=== PATIENT | female | born 1955 | race Caucasian/White ===

== ENCOUNTER 2020-11-04 08:02 | Outpatient (CLI) | payer MEDICARE, MEDICAID, SELFPAY ==
--- NOTE | ~2020-11-04 | CT_ITS ---
EXAMINATION: CT abdomen w con DATE: 11/04/2020 08:52 INDICATION: Mid and upper abdominal pain. Epigastric abdominal pain. Gastroesophageal reflux. Abdomin al bloating, burping, nausea, diarrhea. History of gastric bypass surgery in 1977. TECHNIQUE: Computed tomography (CT) of the abdomen was performed with 100 cc Omnipaque 350 intravenou s contrast. Automated exposure control and iterative reconstruction technique were employed. Exam dos e: 969.03 mGy-cm total exam DLP. COMPARISON: 12/01/2018 abdominal ultrasound examination FINDINGS: Normal heart size. No pericardial or pleural effusion. The lung bases are clear of infiltra te or consolidation. Small sliding hiatal hernia. Status post gastric bypass surgery. There are small stones at the neck of the gallbladder. No gallbladder wall thickening or pericholecys tic fluid or stranding. No hepatic, splenic, pancreatic, and adrenal or renal space-occupying mass lesion. No urinary tract c alculus or hydroureteronephrosis. Normal caliber of the abdominal aorta. No intraperitoneal or retroperitoneal mass lesion or adenopath y or ascites. Diverticulosis of transverse and descending colon; no CT evidence of diverticulitis of the included c olon. No bowel obstruction, bowel wall thickening, pneumatosis or intraperitoneal free air. Included skeletal structures are unremarkable other than diffuse idiopathic skeletal hyperostosis of the lower thoracic spine and degenerative change of the lumbar spine. No suspicious osteolytic or ost eoblastic lesions. IMPRESSION: Status post gastric bypass surgery Small sliding hiatal hernia Cholelithiasis Diverticulosis of the colon Reviewed, dictated and finalized at [facility]. Reviewed, dictated and finalized at location A. 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
[2020-11-04 08:34] LABS: Estimated Glomerular Filt Rate 51
== END 2020-11-04 08:03 | disposition home or self-care (01) ==
LOC: CHSIMG 08:06
PROVIDERS: PCP Nurse Practitioner; Visit Provider Nurse Practitioner Family
DX: R10.13 Epigastric pain (principal)
CPT/HCPCS: 74160; Q9965; Q9967

== ENCOUNTER 2021-02-20 14:39 | Outpatient (CLI) | payer MEDICARE, MEDICAID, SELFPAY ==
--- NOTE | ~2021-02-20 | CT_ITS ---
EXAMINATION: CT lung screening EXAM DATE: 02/20/2021 14:59 INDICATION: Personal history of tobacco dependence. TECHNIQUE: Spiral low dose CT of the chest without contrast. Axial, coronal and sagittal images were reviewed. The dose-length product (DLP) for this examination was 430.92 mGy-cm. The exposure was t ailored according to patient size (auto mA exposure control), and iterative reconstruction (ASIR) was used as additional dose reduction technique. There is no prior study for comparison. FINDINGS: There is left upper lobe calcified granuloma. There is mild emphysema. No suspicious pulmo nary nodules. Tracheobronchial tree is patent. There is no mediastinal, hilar or axillary lymphade nopathy. There are no pleural or pericardial effusions. There is no pneumothorax. Heart normal in size. There is mild coronary arterial calcification, arterial sclerosis. There is cholelithiasis . Surgical changes at the gastroesophageal junction. Patient has diffuse idiopathic skeletal hyperos tosis (DISH). There are no osteoblastic or osteolytic lesions identified. IMPRESSION: Lung-RADS category 1, negative (<1%chance of malignancy); recommend continued LDCT screen ing in 1 year. > Reviewed, dictated and finalized at location A. IMPRESSION: Lung-RADS category 1, negative (<1%chance of malignancy); recommend continued LDCT screening in 1 year. >
== END 2021-02-20 14:40 | disposition home or self-care (01) ==
LOC: CHSIMG 14:41
PROVIDERS: PCP Nurse Practitioner; Visit Provider Nurse Practitioner
DX: Z12.2 Encounter for screening for malignant neoplasm of respiratory organs (principal); Z87.891 Personal history of nicotine dependence
CPT/HCPCS: 71271

== ENCOUNTER 2022-11-09 13:37 | Emergency (ER) | payer MEDICARE, MEDICAID, SELFPAY ==
[2022-11-09] VITALS (25 sets, daily range): BP systolic 85–102; BP diastolic 50–81; PULSE 68–83; RESP 10–19; TEMP 36.2; O2SAT 80–100
--- NOTE | ~2022-11-09 | CT_ITS ---
Non-contrast CT scan of the Abdomen and Pelvis Clinical indication: Nausea and vomiting Technique: 5 mm axial scans were obtained through the abdomen and pelvis without intravenous or oral contrast. Dose reduction technique was used on this scan by utilizing automated exposure control and iterative reconstruction technique. The dose-length product (DLP) was 1550.78 mGy-cm. COMPARISON: 11/04/2020 Findings: Images through the lung bases reveal no abnormalities. The liver, spleen, pancreas, kidneys, and adrenals appear normal. Calcified gallstones are again note d at the gallbladder neck. There is no aortic aneurysm. There is no evidence of bowel obstruction. There are probable minimal pericolonic inflammatory change s about the descending and proximal sigmoid colon. Multiple surgical clips noted in the gastric fundu s/GE junction region. Left anterior ventral fat-containing hernia noted. Images through the pelvis were performed. There is no evidence of ascites or lymphadenopathy. Urinary bladder unremarkable. No adnexal mass evident. Impression: Probable minimal pericolonic inflammatory changes involving the descending and proximal sigmoid colon . Findings are suspicious for mild infectious/inflammatory colitis. Cholelithiasis, unchanged. Reviewed, dictated and finalized at location [] TECH Impression: Probable minimal pericolonic inflammatory changes involving the descending and proximal sigmoid colon. Findings are suspicious for mild infectious/inflammator y colitis. Cholelithiasis, unchanged.
[2022-11-09 15:01] LABS: Basophils Absolute Auto 0.03 K/mm3 (0.00-0.10); Basophils Percent Auto 0.2 % (0.0-1.0); Eosinophils Absolute Auto 0.05 K/mm3 (0.02-0.50); Eosinophils Percent Auto 0.4 % (1.0-6.0); Hematocrit 42.2 % (35.0-42.0); Hemoglobin 13.5 g/dL (11.7-13.8); Immature Granulocyte Absolute 0.07 K/mm3 (0.00-0.00); Immature Granulocyte Percent A 0.5 % (0.0-0.0); Lymphocytes Absolute Auto 2.23 K/mm3 (1.10-4.50); Lymphocytes Percent Auto 15.9 % (18.0-42.0); Mean Corpuscular Hemoglobin 29.6 pg (27.0-31.0); Mean Corpuscular Volume 92.5 fL (78.0-102.0); Mean Platelet Volume 10.5 fl (9.2-11.8); Monocytes Absolute Auto 0.87 K/mm3 (0.10-0.90); Monocytes Percent Auto 6.2 % (2.0-11.0); Neutrophils Absolute Auto 10.8 K/mm3 (1.7-7.2); Neutrophils Percent Auto 76.8 % (50.0-70.0); Platelet Count Result 237 K/mm3 (150-420); Red Blood Count 4.56 M/mm3 (4.20-5.40); Red Cell Distribution Width 13.7 % (11.6-14.4)
[2022-11-09 15:19] LABS: Alanine Aminotransferase 10 U/L (14-59); Albumin Level 2.8 g/dL (3.4-5.0); Alkaline Phosphatase 81 U/L (46-116); Anion Gap 9 mmol/L (8-16); Aspartate Amino Transferase < 10 U/L (15-37); Bilirubin,Total 0.4 mg/dL (0.00-1.00); Blood Urea Nitrogen 14 mg/dL (7-18); Calcium 8.8 mg/dL (8.5-10.1); Carbon Dioxide 27 mmol/L (21-32); Chloride 100 mmol/L (98-108); Estimated CRCL calculation 45 ml/min; Estimated Glomerular Filt Rate 52; Glucose 100 mg/dL (70-99); Magnesium 1.6 mg/dL (1.8-2.4); Osmolality Calculated 282 mOsm/kg (285-295); Potassium 3.3 mmol/L (3.5-5.1); Sodium 136 mmol/L (136-145)
[2022-11-09] MEDS: SODIUM CHLORIDE 0.9% IV 1,000 ML 999 ML IV CONT (15:25)
[2022-11-09 15:36] LABS: Influenza A QL RT-PCR Negative (Negative); Influenza B QL RT-PCR Negative (Negative); SARS-CoV-2 RNA PCR Negative (Negative)
[2022-11-09] MEDS: MAGNESIUM SULF 2 GM/WATER 50ML 2 GM/50 ML BAG IVPB (15:38)
--- NOTE | 2022-11-09 15:53 | PC.NURSE ---
PT IS RESTING ON STRETCHER, LIGHTS OFF, WARM BLANKET PROVIDED. PT IS LYING ON LEFT SIDE AT THIS TIME WITH IVF AND MEDICATIONS INFUSING WITHOUT DIFFICULTY. ERP IS AWARE OF VS. NAD NOTED. WILL CONTINUE TO MONITOR. ICE CHIPS WERE PROVIDED.
--- NOTE | 2022-11-09 16:04 | ED.NAVMDI ---
HPI - Nausea/Vomiting/Diarrhea General Chief complaint: Unspecified Stated complaint: RECTAL BLEEDING SICK Time Seen by Provider: 11/09/22 14:40 Source: patient and RN notes reviewed Mode of arrival: ambulatory Limitations: no limitations History of Present Illness HPI Narrative: patient states that 4 days ago she was having difficulty with constipation. She took some nilf-[id number]-bovhwsq medication and then had a forceful bowel movement that was large and shortly after that she began having bright red blood on the toilet paper and in the stool. She said that was intermittent for another 24 hours but then spontaneously stopped. She has not had any more rectal bleeding since. Then 3 days ago she began having headache nausea vomiting fatigue. She has also been having some muscle spasms and when I mention body aches she said yes. She has also confirms sore throat. MD elicited complaint: nausea, vomiting and diarrhea Onset (ago): day(s) (3) Description of vomiting: food contents and bilious Description of diarrhea: watery Associated nausea: Yes Associated abdominal pain: No Exacerbating factors: eating Relieving factors: none Associated symptoms: myalgias, headaches and weakness ( Fatigue) Related Data Home Medications Medication Instructions Recorded Confirmed albuterol sulfate 90 mcg/actuation 1 inh inhalation Q4H 12/16/20 11/09/22 aerosol inhaler (Ventolin HFA) aspirin 81 mg tablet,delayed 81 mg PO DAILY 12/16/20 11/09/22 release (Adult Aspirin Regimen) famotidine 20 mg tablet 20 mg PO BID 12/16/20 11/09/22 levothyroxine 175 mcg capsule 175 mcg PO DAILY 12/16/20 11/09/22 lisinopril 20 mg tablet 20 mg PO DAILY 12/16/20 11/09/22 lovastatin 10 mg tablet 10 mg PO DAILY 12/16/20 11/09/22 lurasidone 40 mg tablet (Latuda) 40 mg PO DAILY 12/16/20 11/09/22 sertraline 100 mg tablet 100 mg PO DAILY 12/16/20 11/09/22 Allergies Allergy/AdvReac Type Severity Reaction Status Date / Time codeine AdvReac Hallucinati Verified 11/09/22 14:25 ng Review of Systems Review of Systems: All systems reviewed & are unremarkable except as noted in HPI and below PMFSH Past Medical History Medical History (Updated 11/09/22 @ 17:02 by Armin Carr MD) Depression with anxiety Hypertension Hypothyroidism Morbid obesity Nausea Surgical History Surgical History History of gastric bypass Social History Social History Smoking status: Former smoker Tobacco type: cigarettes Alcohol intake: never Substance use: never Gender identity (if verbalized by the patient): Female Exam Const: General: no acute distress, alert and ill appearing acutely Nutritional Appearance: well nourished and obese morbidly obese Orientation/consciousness: patient oriented x3 Limitations: no limitations HENMT: Head: normal to inspection Ears: external ears normal Face/Nose/Sinus: Normal external nose present Face and sinus: normal facial exam Mouth: Yes moist mucous membranes Eyes: Conjunctivae: conjunctivae normal Cornea: corneas normal Pupils: Equal, round and reactive pupils present EOM: EOMs intact bilaterally Neck: Neck: normal visual inspection Resp: Effort & Inspection: normal respiratory effort Auscultation: clear to auscultation bilaterally Cardio: Rate: regular rate Rhythm: regular rhythm GI: GI Palp: Yes Soft to palpation, Yes Tenderness to palpation present (GI) ( mild generalized), No Guarding due to palpation present (GI) and No Rebound tenderness present Auscultation: normal bowel sounds Back/Spine/Pelvis: Cervical Spine: cervical ROM normal Thoracic/Lumbar Spine: thoraco-lumbar ROM normal Skin: General skin exam: normal color Rashes: no rashes Neuro: General: patient oriented x3, moves all extremities, no focal motor deficits and CN's II-XI intact bilaterally Speech: normal speech Gait exam (Neuro): Nor
--- NOTE | 2022-11-09 16:42 | PC.NURSE ---
pt has returned from ct, ivf and medications are infusing as ordered without difficulty. nad noted. will continue to monitor.
== END 2022-11-09 17:15 | disposition home or self-care (01) ==
PROVIDERS: Emergency Provider Emergency Medicine; PCP Physician Assistant
DX: K52.9 Noninfective gastroenteritis and colitis, unspecified (principal); E83.42 Hypomagnesemia; Z20.822 Contact with and (suspected) exposure to COVID-19; I10 Essential (primary) hypertension; E03.9 Hypothyroidism, unspecified; Z87.891 Personal history of nicotine dependence
CPT/HCPCS: 36415; 74176; 80053; 83735; 85025; 87502; 96365; 99284; J3475; J7030; U0003; U0005

== ENCOUNTER 2023-10-30 18:00 | Emergency (ER) | payer MEDICARE, MEDICAID, SELFPAY ==
--- NOTE | ~2023-10-30 | CT_ITS ---
EXAMINATION: CTA chest PE protocol DATE: 10/30/2023 20:03 PALEOLOGY PROFESSOR INDICATION: Dyspnea. History of blood clots. TECHNIQUE: Computed tomographic angiography (CTA) of the chest was performed with 100 mL Omnipaque-35 0 intravenous contrast. The dose-length product was 914.45 mGy-cm. Maximum intensity projection 3D-re constructions of the aorta and other arteries were constructed by the technologist on a separate work station. Automated exposure control and iterative reconstruction technique were employed. COMPARISON: CT dated 02/20/2021. FINDINGS: Study is technically adequate without evidence for pulmonary embolism. Heart size normal. N o significant pleural or pericardial effusion. There are changes of gastric bypass. There are gallsto radha. There is atherosclerosis of the aorta without aneurysm. Calcified granuloma left upper lobe. The re are areas of interlobular septal thickening suggesting mild interstitial lung disease. No focal co nsolidation. No pneumothorax. No endobronchial lesions. IMPRESSION: 1. No evidence for pulmonary embolism. No acute cardiopulmonary disease. Reviewed, dictated and finalized at location A. OLOGY PROFESSOR
[2023-10-30 18:00] VITALS: BP 120/56; PULSE 95; RESP 18; TEMP 36; O2SAT 98
--- NOTE | 2023-10-30 18:22 | ECG_ITS ---
Measurements Intervals [place] Rate: 78 P: 56 ND: 156 QRS: 49 QRSD: 89 T: 59 QT: 361 QTc: 414 Interpretive Statements SINUS RHYTHM WITHIN NORMAL LIMITS NO PREVIOUS ECG AVAILABLE FOR COMPARISON Electronically Signed On 10-31-2023 15:32:19 MANAGER DOCUMENT CONTROL by Arturo Curry M.D.
--- NOTE | 2023-10-30 18:23 | ED.GENADULT ---
HPI - General Adult General Chief complaint: Extremity Problem,Nontraumatic Stated complaint: left leg pain; hx blood clots Time Seen by Provider: 10/30/23 18:04 History of Present Illness HPI narrative: Jessica is a 67F with a PMH of lymphedema, PAD, COPD, Blood clot (unknown if arterial or venous) and obesity that presented to the ED with concerns of left lower leg pain and dyspnea. They started 2 weeks ago but are much worse today. She has had worsening dyspnea as well as cough and sputum production but no chest pain, vomiting or lightheadedness. Related Data Home Medications Medication Instructions Recorded Confirmed albuterol sulfate 90 mcg/actuation 1 inh inhalation Q4H 12/16/20 10/30/23 aerosol inhaler (Ventolin HFA) aspirin 81 mg tablet,delayed 81 mg PO DAILY 12/16/20 10/30/23 release (Adult Aspirin Regimen) famotidine 20 mg tablet 20 mg PO BID 12/16/20 10/30/23 levothyroxine 175 mcg capsule 175 mcg PO DAILY 12/16/20 10/30/23 lisinopril 20 mg tablet 20 mg PO DAILY 12/16/20 10/30/23 lovastatin 10 mg tablet 10 mg PO DAILY 12/16/20 10/30/23 lurasidone 40 mg tablet (Latuda) 40 mg PO DAILY 12/16/20 10/30/23 sertraline 100 mg tablet 100 mg PO DAILY 12/16/20 10/30/23 hydrochlorothiazide 12.5 mg tablet 12.5 mg PO DAILY 10/30/23 10/30/23 Allergies Allergy/AdvReac Type Severity Reaction Status Date / Time codeine AdvReac Hallucinati Verified 10/30/23 18:09 ng Review of Systems Review of Systems: All systems reviewed & are unremarkable except as noted in HPI and below PMFSH Past Medical History Medical History (Updated 10/30/23 @ 20:46 by London Ny DO) Depression with anxiety Hypertension Hypothyroidism Morbid obesity Nausea Surgical History Surgical History History of gastric bypass Social History Social History Smoking status: Former smoker Tobacco type: cigarettes Alcohol intake: never Substance use: never Living arrangements: with family Gender identity (if verbalized by the patient): Female Exam Const: General: cooperative, healthy appearing, comfortable, no acute distress, well developed, alert, awake and Physically active Orientation/consciousness: oriented to person, oriented to place and oriented to time HENMT: Head: normal to inspection, normocephalic and atraumatic Ears: hearing grossly normal bilaterally and external ears normal Face/Nose/Sinus: Normal external nose present Eyes: General: appearance normal, both eyes and all related structures Periorbital: periorbital findings normal Sclera: sclerae normal Pupils: Equal, round and reactive pupils present Neck: Neck: normal visual inspection Chest: Chest palpation & inspection: normal inspection of the chest Resp: Effort & Inspection: normal respiratory effort, able to speak in complete sentences and no respiratory distress Other: Diffuse wheezes Cardio: Jugular venous distension: no JVD Rate: regular rate Rhythm: regular rhythm GI: Inspection: normal to inspection GI Palp: Yes Soft to palpation Auscultation: normal bowel sounds Skin: General skin exam: normal color and no rashes or lesions noted Neuro: General: oriented to person, oriented to place and oriented to time Cranial nerves: Yes Equal, round and reactive pupils present Extrem: General: normal to inspection Other: +macey sign on the left Course Course Emergency Course: Ordered labs, CTA, duoneb, steroids, azithromycin EKG showed NSR with a rate of 78, normal axis, no ST elevation or depression and no ectopy EXAMINATION: CTA chest PE protocol DATE: 10/30/2023 20:03 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 History of blood clots. TECHNIQUE: Computed tomographic angiography (CTA) of the chest was performed with 100 mL Omnipaque-350 intravenous contrast. The dose-length product was 914.45 mGy-cm. Maximum intensity projection 3D-re
[2023-10-30] MEDS: IPRATROPIUM 0.5 MG/ALBUTEROL SULFATE 2.5 MG AMPUL.NEB 3 ML INHALATION (18:48)
[2023-10-30 18:49] VITALS: PULSE 74; RESP 18; O2SAT 99
[2023-10-30 18:55] VITALS: PULSE 74; RESP 18; O2SAT 99
[2023-10-30] MEDS: methylPREDNISolone SOD SUCC 125 MG VIAL IV PUSH (18:59)
[2023-10-30] MEDS: AZITHROMYCIN 250 MG TABLET 500 MG PO (18:59)
[2023-10-30 19:00] LABS: Basophils Absolute Auto 0.05 K/mm3 (0.00-0.10); Basophils Percent Auto 0.5 % (0.0-1.0); Eosinophils Absolute Auto 0.51 K/mm3 (0.02-0.50); Eosinophils Percent Auto 5.3 % (1.0-6.0); Hematocrit 41.4 % (35.0-42.0); Hemoglobin 13.2 g/dL (11.7-13.8); Immature Granulocyte Absolute 0.03 K/mm3 (0.00-0.00); Immature Granulocyte Percent A 0.3 % (0.0-0.0); Lymphocytes Absolute Auto 2.88 K/mm3 (1.10-4.50); Lymphocytes Percent Auto 29.8 % (18.0-42.0); Mean Corpuscular HGB Conc 31.9 g/dL (32.0-36.0); Mean Corpuscular Hemoglobin 29.7 pg (27.0-31.0); Mean Platelet Volume 10.4 fl (9.2-11.8); Monocytes Percent Auto 6.2 % (2.0-11.0); Neutrophils Absolute Auto 5.6 K/mm3 (1.7-7.2); Neutrophils Percent Auto 57.9 % (50.0-70.0); Platelet Count Result 298 K/mm3 (150-420); Red Blood Count 4.45 M/mm3 (4.20-5.40); Red Cell Distribution Width 12.8 % (11.6-14.4); White Blood Count 9.7 K/mm3 (4.8-10.8)
[2023-10-30 19:22] LABS: Alanine Aminotransferase 17 U/L (14-59); Albumin Level 3.1 g/dL (3.4-5.0); Alkaline Phosphatase 86 U/L (46-116); Anion Gap 4 mmol/L (8-16); Aspartate Amino Transferase 15 U/L (15-37); Bilirubin,Total 0.4 mg/dL (0.00-1.00); Blood Urea Nitrogen 15 mg/dL (7-18); Calcium 8.6 mg/dL (8.5-10.1); Carbon Dioxide 32 mmol/L (21-32); Chloride 100 mmol/L (98-108); Estimated CRCL calculation 59 ml/min; Estimated Glomerular Filt Rate 45; Glucose 122 mg/dL (70-99); Osmolality Calculated 283 mOsm/kg (285-295); Sodium 136 mmol/L (136-145); Total Protein 7.5 g/dL (6.4-8.2); Troponin I 4.4 ng/L (0.00-60.4)
[2023-10-30 19:33] LABS: D Dimer 2.31 mg/L (0.19-0.50)
[2023-10-30] MEDS: ENOXAPARIN 100 MG/ML SYRINGE SUB-Q (21:01)
[2023-10-30] MEDS: ENOXAPARIN 60 MG/0.6 ML SYRINGE 35 MG SUB-Q (21:01)
== END 2023-10-30 21:25 | disposition home or self-care (01) ==
PROVIDERS: Emergency Provider Family Medicine; PCP Physician Assistant
DX: I82.402 Acute embolism and thrombosis of unspecified deep veins of left lower extremity (principal); J44.1 Chronic obstructive pulmonary disease with (acute) exacerbation; I10 Essential (primary) hypertension; E03.9 Hypothyroidism, unspecified; F41.9 Anxiety disorder, unspecified; F32.A Depression, unspecified; Z79.899 Other long term (current) drug therapy; Z79.82 Long term (current) use of aspirin; Z87.891 Personal history of nicotine dependence
CPT/HCPCS: 36415; 71275; 80053; 84484; 85025; 85380; 93005; 94640; 96372; 96374; 99284; A9270; J1650; J2930; Q9967

== ENCOUNTER 2023-11-02 15:08 | Outpatient (CLI) | payer MEDICARE, MEDICAID, SELFPAY ==
--- NOTE | ~2023-11-02 | US_ITS ---
EXAMINATION:US venous doppler LE LT INDICATION:Posterior calf pain TECHNIQUE: Multiple grayscale, color flow and Doppler images of the left lower extremity deep venous systems were obtained and reviewed. COMPARISON:No prior studies for comparison. FINDINGS: The common femoral, superficial femoral and popliteal veins demonstrate normal respiratory variation, augmentation and compressibility. Color flow is also seen within the posterior tibial, pe roneal, greater saphenous and profunda veins. Reflux is noted in the left popliteal vein. IMPRESSION: 1: No lower extremity deep venous thrombosis. Reviewed, dictated and finalized at location B. 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
== END 2023-11-02 15:09 | disposition home or self-care (01) ==
LOC: CHSIMG 15:09
PROVIDERS: PCP Physician Assistant; Visit Provider Family Medicine
DX: I82.402 Acute embolism and thrombosis of unspecified deep veins of left lower extremity (principal)
CPT/HCPCS: 93971

== ENCOUNTER 2025-03-06 14:02 | Outpatient (CLI) | payer MEDICARE, MEDICAID, SELFPAY ==
--- NOTE | ~2025-03-06 | MM_ITS ---
EXAMINATION: MM screening josephine BI w eula HISTORY: Screening TECHNIQUE: Craniocaudal and mediolateral oblique 3-D tomosynthesis images were obtained and synthetic 2-D images were generated. CAD analysis was submitted and interpreted. COMPARISON: 05/30/2018 BREAST PARENCHYMAL COMPOSITION: Not dense: There are scattered areas of fibroglandular density. FINDINGS: There is no evidence of suspicious mass, calcification, or architectural distortion to sugg est malignancy in either breast. There has been no suspicious interval change. IMPRESSION: 1. No mammographic evidence of malignancy. 2. Recommend routine screening mammography in one year. BI-RADS Category 1: Negative Reviewed, dictated and finalized at location A.
--- OUTSIDE RECORDS SUMMARY | 2025-03-06 15:44 | XMS_ITS | Clinical Summary ---
Author Organization 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 Gender Identity Not on file Sexual Orientation Not on file Plan of Treatment Health Maintenance Due Date Last Done Comments Colorectal Cancer Screening Colonoscopy (10 Years) 1955 Hepatitis C 1973 DTaP, Tdap and Td Vaccines ( 1 - Tdap) 1974 Mammogram Screening 1995 Zoster Vaccines (1 of 2) 2005 Annual Medicare Wellness Visit 2020 Dexa Scan (General) 2020 Pneumococcal Vaccine: 65+ Ye ars (1 of 1 - PCV) 2020 COVID-19 Vaccine (1 - 2023-2 5 season) 2024 PHQ-2 (Physician [place]) 11/28/2024 RSV Immunization or 60+ Years (1 - 1-dose 75+ series) 2030 Meningococcal B Vaccine Aged Out No l onger eligible based on patient's age to complete this topic Meningococcal Vaccine Aged Out No iris amanda eligible based on patient's age to complete this topic RSV Immunizations Under 20 Months Aged Out No longer eligible based on patient's age to complete this topic Insurance AETNA MEDICAID Care Teams Fire Control Technician B Relationship Specialty Start Date End Date Flaco Tim PA [address] [place] [address] PCP - General PHYSICIAN MANAGEMENT INTERN 01/09/25
--- OUTSIDE RECORDS SUMMARY | 2025-03-06 15:44 | XMS_ITS | Referral Summary ---
Author Organization [facility] Address [address] [place] [address] Care Team Providers Care Examination Supervisor Name Role Phone Flaco Tim Primary Care Provider [phone] Encounters Date Type Department Care Team Description 01/07/2025 Orders Only [facility] [address] [address] Raphael Mitchell MD Trigeminal neuralgia (Primary Dx) from Last 3 Months Allergies Active Allergy Reactions Criticality Noted Date Comments Codeine Hallucinations Medium 01/06/2024 Medications famotidine (PEPCID) 20 mg tablet 1 Active hydroCHLOROthia zide (HYDRODIURIL) 12.5 mg tablet 1 Active levothyroxine (SYNTHROID) 175 mcg tablet 1 Active lovastatin (MEVACOR) 10 mg tablet 1 Active Latuda 40 mg tablet 1 Active sertraline (ZOLOFT) 100 mg tablet 1 Active butalbital-acet aminophen-caffe ine (ESGIC) 50-325-40 mg per tablet Take 1 tablet by mouth every 6 (six) hours as needed for headaches 20 tablet 4 Active Active Problems Problem Noted Date Diagnosed Date Hereditary edema of legs 10/12/2021 Assessment & Plan (10/20/2021 11:07 AM LEATHER STRETCHER): Patient has lymphedema of the bilateral lower extremities with left being geater. She has tried compression and elevation along with walking for exercise for greater than 4 weeks and despite all of this still has significant edema of the left lower extremity. She also has skin changes with hyperpigmentation of the left lower extremity. She does not have any wounds at this time. Plan will be to continue compression therapy as well as get her a lymphedema pump to aid in decreasing the swelling of her lower extremities and trunk. I will have her follow up in 1 month with a venous duplex study. Mixed hyperlipidemia 10/12/2021 Assessment & Plan (10/12/2021 2:08 PM LEATHER STRETCHER): Followed by her PCP and on a statin. Primary hypertension 10/12/2021 Assessment & Plan (10/12/2021 2:08 PM LEATHER STRETCHER): Followed by her PCP and controlled on her current medications. Social History Tobacco Use Types Packs/Day Years Used Date Smoking Tobacco: Former Smokeless Tobacco: Never Personal Safety Answer Date Recorded Have you ever been in or are you currently in a harmful physical or emotional relationship or is someone making you feel afraid or unsafe? Denies 01/06/2024 Comments Unknown Sex and Gender Information Value Date Recorded Sex Assigned at Not on file Legal Sex Female 5:15 PM LEATHER STRETCHER Gender Identity Not on file Sexual Orientation Not on file Last Filed Vital Signs Vital Sign Reading Time Taken Comments Blood Pressure 116/54 01/07/2024 1:00 AM LEATHER STRETCHER Pulse 71 01/07/2024 1:00 AM LEATHER STRETCHER Temperature 36.7 C (98.1 F) 01/06/2024 10:49 PM LEATHER STRETCHER Respiratory Rate 14 01/07/2024 1:00 AM LEATHER STRETCHER Oxygen Saturation 100% 01/07/2024 12: 06 AM LEATHER STRETCHER Inhaled Oxygen Concentration - - Weight 133.7 kg (294 lb 12.1 oz) 2023 10:49 PM LEATHER STRETCHER Height 170.2 cm (5' 7 ) 10/12/2021 1:23 PM LEATHER STRETCHER Body Mass Index 46.17 10/12/2021 1:23 PM LEATHER STRETCHER Plan of Treatment Not on file Insurance [facility] Care Teams Examination Supervisor Relationship Specialty Start Date End Date Flaco Tim PA [address] [place] [address] PCP - General Family Practice 01/04/25
--- OUTSIDE RECORDS SUMMARY | 2025-03-06 15:44 | XMS_ITS | Clinical Summary ---
Author Organization [facility] Address [facility] [place] [address] Care Team Providers Care Mid Level Net Developer Name Role Phone Flaco Tim Primary Care Provider [phone] Allergies Active Allergy Reactions Criticality Noted Date [...] 10/12/2021 Assessment & Plan (10/20/2021 11:07 AM EXTRACTING MACHINE OPERATOR): Patient has lymphedema of the bilateral lower [...] 10/12/2021 Assessment & Plan (10/12/2021 2:08 PM EXTRACTING MACHINE OPERATOR): Followed by her PCP and on a statin. Primary hypertension 10/12/2021 Assessment & Plan (10/12/2021 2:08 PM EXTRACTING MACHINE OPERATOR): Followed by her PCP and controlled on her current medications. Encounters Date Type Department Care Team Description 01/07/2025 Orders Only [facility] [address] [address] Raphael Mitchell MD Trigeminal neuralgia (Primary Dx) from Last 3 Months Social History Tobacco Use Types Packs/Day Years [...] on file Legal Sex Female 5:15 PM EXTRACTING MACHINE OPERATOR Gender Identity Not on file Sexual Orientation Not on file Obstetrics History Last Filed Vital Signs Vital Sign Reading Time Taken Comments Blood Pressure 116/54 01/07/2024 1:00 AM EXTRACTING MACHINE OPERATOR Pulse 71 01/07/2024 1:00 AM EXTRACTING MACHINE OPERATOR Temperature 36.7 C (98.1 F) 01/06/2024 10:49 PM EXTRACTING MACHINE OPERATOR Respiratory Rate 14 01/07/2024 1:00 AM EXTRACTING MACHINE OPERATOR Oxygen Saturation 100% 01/07/2024 12: 06 AM EXTRACTING MACHINE OPERATOR Inhaled Oxygen Concentration - - Weight 133.7 kg (294 lb 12.1 oz) 2023 10:49 PM EXTRACTING MACHINE OPERATOR Height 170.2 cm (5' 7 ) 10/12/2021 1:23 PM EXTRACTING MACHINE OPERATOR Body Mass Index 46.17 10/12/2021 1:23 PM EXTRACTING MACHINE OPERATOR Plan of Treatment Health Maintenance Due Date Last Done Comments Breast Cancer Screening-Mammogram 1955 Colon Cancer Screening-Colonoscopy 1955 Depression Screening 1955 Fall Risk Assessment 1955 Hepatitis C Screening 1955 Osteoporosis Screening-Bone Density Scan 1955 DTaP/Tdap/Td Vaccine (1 - Tdap) 1966 Hepatitis B Screening 1973 Pneumococcal vaccine 65+ (1 of 1 - PCV) 2005 Zoster Vaccine (1 of 2) 2005 Well Visit 65+ 2020 Influenza Vaccine (#1) 2024 Insurance AETNA [facility] Care Teams Mid Level Net Developer Relationship Specialty Start Date End Date Flaco Tim PA [address] [place] [address] PCP - General Family Practice 01/04/25
--- OUTSIDE RECORDS SUMMARY | 2025-03-06 15:44 | XMS_ITS | Clinical Summary ---
Author Organization [facility] Address [address] [place] [address] Phone Care Team Providers Care Financial Aid Manager Name Role Phone Rogerio Riggs MD Primary Care Provider [phone] Allergies Active Allergy Reactions Criticality Noted Date Comments Codeine Hallucinations 01/14/2025 Medications albuterol 108 (90 Base) MCG/ACT Aerosol Solution USE 2 INHALATIONS ORALLY 4 TIMES DAILY 11/25/20 24 Active famotidine (PEPCID) 20 MG Tablet 20 mg 2 times daily. 12/26/19 25 Active hydroCHLOROth iazide 12.5 MG Tablet Take 12.5 mg by mouth daily. 12/26/19 25 Active lisinopril (PRINIVIL, ZESTRIL) 40 MG Tablet 01/14/20 25 Active Lovastatin 10 MG Tablet Take 1 Tablet by mouth daily. 09/27/20 24 Active lurasidone (LATUDA) 40 MG Tablet 01/14/20 25 Active prednisoLONE acetate (PRED FORTE) 1 % Suspension 12/13/19 25 Active levothyroxine (SYNTHROID) 150 MCG Tablet 12/21/19 25 Active sertraline (ZOLOFT) 100 MG Tablet Take 100 mg by mouth daily. 10/03/20 24 Active amitriptyline (ELAVIL) 25 MG Tablet Take 25 mg by mouth nightly as needed. Active pregabalin (Lyrica) 150 MG CapsuleIndica tions:Posther petic Neuralgia Take 1 Capsule by mouth 4 times daily. Indications: Nerve Pain After Herpes Zoster or Shingles 120 Capsule 2 03/05/20 25 Active gabapentin (NEURONTIN) 800 MG Tablet TAKE 1 TABLET 3 TIMES A DAYFOR 30 DAYS 12/27/19 025 Discontinued(Al ternate therapy) traMADol (ULTRAM) 50 MG Tablet 0 12/27/19 25 025 Discontinued(Me d List Clean Up) valACYclovir (VALTREX) 1 GM Tablet Take 1,000 mg by mouth 2 times daily. 025 Discontinued(Me d List Clean Up) pregabalin (Lyrica) 150 MG CapsuleIndica tions:Posther petic Neuralgia Take 1 Capsule by mouth 3 times daily. Indications: Nerve Pain After Herpes Zoster or Shingles 90 Capsule 2 02/28/20 025 Discontinued Active Problems No known active problems Encounters Date Type Department Care Team Description 03/05/2025 Telephone [facility] [address] [place] [id number] Virgen Manzano APRN, ROAD SERVICE LOCKSMITH 02/27/2025 10:00 AM CDT Office Visit [facility] [address] [place] [address] Virgen Manzano APRN, ROAD SERVICE LOCKSMITH Post herpetic neuralgia (Primary Dx) Discharge Disposition: Discharged to home or Selfcare 02/27/2025 Travel from Last 3 Months Family History Medical History Relation Name Comments Heart Disease Father Diabetes Mother Stroke Mother Relation Name Status Comments Father Alive Mother Alive Social History Tobacco Use Types Packs/Day Years Used Date Smoking Tobacco: Former Cigarettes Smokeless Tobacco: Never Tobacco Cessation:Counseling Given: Not Answered Alcohol Use Standard Drinks/Week Comments Not Currently 0 (1 standard drink = 0.6 oz pur e alcohol) Comments Unknown Sex and Gender Information Value Date Recorded Sex Assigned at Not on file 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 Gender Identity Not on file Sexual Orientation Not on file Last Filed Vital Signs Vital Sign Reading Time Taken Comments Blood Pressure 136/64 02/27/2025 10:06 AM CDT Pulse 76 02/27/2025 10:06 AM CDT Temperature 36.3 C (97.4 F) 02/27/2025 10:06 AM CDT Respiratory Rate 20 02/27/2025 10:0 6 AM CDT Oxygen Saturation 96% 02/27/2025 10: 06 AM CDT Inhaled Oxygen Concentration - - Weight 134.1 kg (295 lb 11.2 oz) 2024 10:06 AM CDT Height 167.6 cm (5' 6 ) 02/27/2025 10:0 6 AM CDT Body Mass Index 47.73 02/27/2025 10:06 AM CDT Plan of Treatment Upcoming Encounters Date Type Department Care Team (Late st Contact Info) Description 05/28/2025 3:00 PM CDT [facility] [place] [address] [place] [address] Virgen Manzano, WET PLANT OPERATOR, ROAD SERVICE [employer] [address] [place] [address] Health Maintenance Due Date Last Done Comments DEXA Bone Density 1955 Hepatitis C Virus (HCV) Screening 1955 Mammogram 1955 TdaP Immunization 1955 Colonoscopy 2000 Colorectal Cancer Screening 2000 Cologuard 2005 Immunochemical Fecal Occult Blood 2005 Pneumococcal Immunization (5 0+ years) (1 of 1 - PCV) 2005 Zoster Immunization (1 of 2) 2005 Respiratory Syncytial Virus (RSV) Immunization (Adult) (1 - Risk 60-74 years 1-dose series) 2015 SARS-COV-2 Immunization (2023- season) 2024 Influenza Immunization Completed 10/23/2024 Hepatitis B Immunization Aged Out No longer eligible based on patient's age to complete this topic Meningococcal Immunization (ACWY) Aged Out No longer eligible based on patient's age to complete this topic Rotavirus Immunization Aged Out No lo nger eligible based on patient's age to complete this topic Insurance MEDICARE C AETNA MEDICAID [place] Care Teams Financial Aid Manager Relationship Specialty Start Date End Date Rogerio Riggs MD [address] [place] [id number] PCP - General Family Medicine 02/27/25
--- OUTSIDE RECORDS SUMMARY | 2025-03-06 15:44 | XMS_ITS | Encounter Summary ---
Author Organization [facility] Address [address] [place] [address] Phone Care Team Providers Care Senior Hris Analyst Name Role Phone Rogerio Riggs MD Primary Care Provider [phone] Encounter Details Date Type Department Care Team (Late st Contact Info) Description 03/05/2025 Telephone [facility] [address] [place] [address] Virgen Manzano APRN, ROTOR PILOT [address] [place] [address] Social History Tobacco Use Types Packs/Day Years Used Date Smoking Tobacco: Former Cigarettes Smokeless Tobacco: Never Alcohol Use Standard Drinks/Week Comments Not Currently 0 (1 standard drink = 0.6 oz pur e alcohol) Comments Unknown Sex and Gender Information Value Date Recorded Sex Assigned at Not on file 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 * Telephone Encounter - Bettye Mulligan RN - 03/05/2025 11:56 AM CDT Patient called to inform that the lyrica is not providing her enough pain relief. She notes that she does ok until overnight and is waking up in really bad pain. She takes the lyrica TID but would like a 4th dose to help get her through the night. documented in this encounter Plan of Treatment Upcoming Encounters Date Type Department Care Team (Late st Contact Info) Description 05/28/2025 3:00 PM CDT [facility] - [place] [address] [place] [address] Virgen Manzano APRN, R[address] [place] [address] documented as of this encounter Visit Diagnoses Diagnosis Post herpetic neuralgia Herpes zoster with other nervous system complications documented in this encounter Care Teams Senior Hris Analyst Relationship Specialty Start Date End Date Rogerio Riggs MD [address] [place] [address] PCP - General Family Medicine 02/27/25 documented as of this encounter
--- OUTSIDE RECORDS SUMMARY | 2025-03-06 15:44 | XMS_ITS | Data Portability ---
Author Organization [facility] Address [address] [place] [address] Care Team Providers Care Results Technician Name Role Phone GORDON TIM Primary Care Provider [phone] Assessment No assessment recorded. Plan of Treatment Reminders Order Date Submit Date Provider Last Modified By Organization Details Last Modified Time Details Appointments None recorded . Lab CBC 2023 024 [facility], [address] [place] [address] 2, [place], [address], 4 10:15:21 CMP, serum or plasma 2023 024 ATIL[facility], [address] [place] [address] 2, [place], [address], 4 10:15:19 lipid panel, serum 2023 024 [facility], [address] [facility] 2, [place], [address], 4 10:15:17 HbA1c (hemoglo bin A1c), blood 2023 024 ATILIO In-Office Order, Internal Use Only DO Not Attach Compendium DO Not Attach Compendium, Do Not Delete/merge, [id number] 4 15:53:51 Referral infectio us disease speciali st referral 2024 025 ashley Mitchell MD, 4 [facility] [place] , [address], [place], [address], 5 09:05:[address] referral 2024 025 ashley Johnson DO, 4 [facility], [address], [place], [address], 5 09:04:57 dermatol ogist referral 2023 024 ashley Alarcon MD (Dermatology), [address], [address], [place], [address], 4 09:16:42 dermatol ogist referral 2023 ashley Alarcon MD (Dermatology), [address], [address], [place], [address], 4 11:51:37 ophthalm ologist referral 2023 ATILIO [facility] (In), [address] [place], [address], 4 08:57:[address] referral 2023 024 ashley Mitchell MD, 4 [facility] [place] , [address], [place], [address], 4 15:08:58 Procedures None recorded . Surgeries None recorded . Imaging None recorded . Medication Orders gabapent in 800 mg tablet 2024 025 [email or web address] [facility], [address], [place], [id number], 5 15:18:51 lidocain e 5 % topical patch 2023 024 [email or web address] [facility], [address], [place], [id number], 5 15:03:07 Depo-Med rol 80 mg/mL suspensi on for injectio n 2023 [email or web address] Not available 5 15:02:48 Medrol (Cj) 4 mg tablets in a dose pack 2023 [email or web address] [facility], [facility] [address], [id number], 5 15:04:57 tramadol 50 mg tablet 2023 ATILIO [facility], [facility] [address] [place], [id number], 4 15:31:56 gabapent in 800 mg tablet 2023 [email or web address] [facility], [facility] [address] [place], [id number], 5 15:18:51 Depo-Med rol 80 mg/mL suspensi on for injectio n 2023 [email or web address] Not available 5 15:02:48 acyclovi r 800 mg tablet 2023 [email or web address] [facility], [address] [place], [place], [id number], 4 15:12:51 tramadol 50 mg tablet 2023 ATILIO [facility], [address], [id number], 4 16:24:18 gabapent in 600 mg tablet 2023 [email or web address] [facility], [facility] [address], [id number], 4 11:20:26 lidocain e 5 % topical patch 2023 [email or web address] [facility], [address], [place], [id number], 15:03:07 Depo-Med rol 80 mg/mL suspensi on for injectio n 2023 [email or web address] Not available 15:02:48 valacycl ovir 1 gram tablet 2023 ATILIO [facility], [address], [place], [id number], 15:06:14 Patient TargetsNo targets recorded. Patient Instructions Encounter Date Encounter Id Patient Instructions Last Modified By Organization Details Last Modified Time 03/27/2024 [id number] Plan of care has been discussed with patient including expected therapeutic benefits and potential side effects of prescribed medication and treatments. Patient verbalizes understanding and is in agreement with the plan of care. Patient was instructed to keep all scheduled appointments and contact the clinic for any additional problems. [email or web address] Not available 04/03/2024 12:10:56 10/23/2024 [id number] influenza (flu) vaccine: care instructions [email or web address] Not available 10/23/2024 15:37:26 learning about high blood pressure [email or web address] Not available 10/23/2024 15:42:28 A healthy lifestyle: care instructions [email or web address] Not available 10/23/2024 15:40:31 01/02/2025 [id number] A healthy lifestyle: care instructions [email or web address] Not available 01/02/2025 15:16:20 Reason for Referral Sign Hanger Referral for Herpes zoster Referring Physician: [facility], Encounter Date: 03/27/2024 Infectious Disease Specialis t Referral for Herpes zoster Referring Physician: [facility], Encounter Date: 03/27/2024 Piano Builder Referral for H erpes zoster Referring Physician: Gordon Tim [facility], Encounter Date: 05/24/2024 Piano Builder Referral for P ostherpetic neuralgia Referring Physician: Gordon Tim [facility], Encounter Date: 10/23/2024 Infectious Disease Specialis t Referral for Trigeminal neuralgia Referring Physician: Gordon Tim [facility], Encounter Date: 01/02/2025 Furnace Hand Referral for Bilious vomiting Referring Physician: Gordon Tim [facility], Encounter Date: 01/02/2025 Results Created Date Observation Date Name Description Value Unit Range Abnormal Flag Note LastModifiedBy Organization Detail LastModifiedTime 10/23/20 24 10/24/2024 LIPID PANEL cholesterol, total 163 mg/dL 100-19 9 Not Available [address], [address], 10/24/2024 10:15:17 10/23/20 24 10/24/2024 LIPID PANEL triglyceride s 160 mg/dL 0-149 above high normal Not Available [address], [address], 10/24/2024 10:15:17 10/23/20 24 10/24/2024 LIPID PANEL HDL cholesterol 38 mg/dL >39 below low normal Not Available [address], [address], 10/24/2024 10:15:17 10/23/20 24 10/24/2024 LIPID PANEL VLDL cholesterol mandy 28 mg/dL 5-40 Not Available [address], [address], 10/24/2024 10:15:17 10/23/20 24 10/24/2024 LIPID PANEL LDL chol calc ([facility]) 97 mg/dL 0-99 Not Available [address], [address], 10/24/2024 10:15:17 10/23/20 24 10/24/2024 COMP. METAB OLIC PANEL (14) glucose 104 mg/dL 70-99 above high normal Not Available [address], [address], 10/24/2024 10:15:18 10/23/20 24 10/24/2024 COMP. METAB OLIC PANEL (14) BUN 10 mg/dL 8-27 Not Available [address], [address], 10/24/2024 10:15:18 10/23/20 24 10/24/2024 COMP. METAB OLIC PANEL (14) creatinine 0.90 mg/dL 0.57-1 .00 Not Available [address], [address], 10/24/2024 10:15:18 10/23/20 24 10/24/2024 COMP. METAB OLIC PANEL (14) eGFR 70 mL/mi n/1.7 3 >59 Not Available [address], [address], 10/24/2024 10:15:18 10/23/20 24 10/24/2024 COMP. METAB OLIC PANEL (14) BUN/creatini ne ratio 11 12-28 below low normal Not Available [address], [address], 10/24/2024 10:15:18 10/23/20 24 10/24/2024 COMP. METAB OLIC PANEL (14) sodium 141 mmol/ L 134-14 4 Not Available [address], [address], 10/24/2024 10:15:18 10/23/20 24 10/24/2024 COMP. METAB OLIC PANEL (14) potassium 4.6 mmol/ L 3.5-5. 2 Not Available [address], [address], 10/24/2024 10:15:18 10/23/20 24 10/24/2024 COMP. METAB OLIC PANEL (14) chloride 102 mmol/ L 96-106 Not Available [address], [address], 10/24/2024 10:15:18 10/23/20 24 10/24/2024 COMP. METAB OLIC PANEL (14) carbon dioxide, total 26 mmol/ L 20-29 Not Available [address], [address], 10/24/2024 10:15:18 10/23/20 24 10/24/2024 COMP. METAB OLIC PANEL (14) calcium 9.3 mg/dL 8.7-10 .3 Not Available [address], [address], 10/24/2024 10:15:18 10/23/20 24 10/24/2024 COMP. METAB OLIC PANEL (14) protein, total 6.9 g/dL 6.0-8. 5 Not Available [address], [address], 10/24/2024 10:15:18 10/23/20 24 10/24/2024 COMP. METAB OLIC PANEL (14) albumin 4.0 g/dL 3.9-4. 9 Not Available [address], [address], 10/24/2024 10:15:18 10/23/20 24 10/24/2024 COMP. METAB OLIC PANEL (14) globulin, total 2.9 g/dL 1.5-4. 5 Not Available [address], [address], 10/24/2024 10:15:18 10/23/20 24 10/24/2024 COMP. METAB OLIC PANEL (14) bilirubin, total 0.3 mg/dL 0.0-1. 2 Not Available [address], [address], 10/24/2024 10:15:18 10/23/20 24 10/24/2024 COMP. METAB OLIC PANEL (14) alkaline phosphatase 94 IU/L 44-121 Not Available [address], [address], 10/24/2024 10:15:18 10/23/20 24 10/24/2024 COMP. METAB OLIC PANEL (14) AST (SGOT) 16 IU/L 0-40 Not Available [address], [address], 10/24/2024 10:15:18 10/23/20 24 10/24/2024 COMP. METAB OLIC PANEL (14) ALT (SGPT) 9 IU/L 0-32 Not Available [address], [address], 10/24/2024 10:15:18 10/23/20 24 10/24/2024 CARDI OVASC ULAR REPOR T interpretati on Note Suppl ement al repor t is avail able. Not Available [address], [address], 10/24/2024 10:15:20 10/23/20 24 10/24/2024 CARDI OVASC ULAR REPOR T pdf . Not Available [address], [address], 10/24/2024 10:15:20 10/23/20 24 10/24/2024 CBC, PLATE LET, NO DIFFE RENTI AL WBC 11.2 x10e3 /uL 3.4-10 .8 above high normal Eff ectiv e Decem sameer 2023 [place] [address] 5 WBC will be made* * non-o rdera ble as a stand -emilie e order code. Not Available [address], [address], 10/24/2024 10:15:21 10/23/20 24 10/24/2024 CBC, PLATE LET, NO DIFFE RENTI AL RBC 4.29 x10e6 /uL 3.77-5 .28 Not Available [address], [address], 10/24/2024 10:15:21 10/23/2010/24/2024 CBC, PLATE LET, NO DIFFE RENTI AL hemoglobin 13.6 g/dL 11.1-1 5.9 Not Available [address], [address], 10/24/2024 10:15:21 10/23/20 24 10/24/2024 CBC, PLATE LET, NO DIFFE RENTI AL hematocrit 41.2 % 34.0-4 6.6 Not Available [address], [address], 10/24/2024 10:15:21 10/23/20 24 10/24/2024 CBC, PLATE LET, NO DIFFE RENTI AL MCV 96 fL 79-97 Not Available [address], [address], 10/24/2024 10:15:21 10/23/20 24 10/24/2024 CBC, PLATE LET, NO DIFFE RENTI AL MCH 31.7 pg 26.6-3 3.0 Not Available [address], [address], 10/24/2024 10:15:21 10/23/20 24 10/24/2024 CBC, PLATE LET, NO DIFFE RENTI AL MCHC 33.0 g/dL 31.5-3 5.7 Not Available [facility] [address] [place] [address], [address], 10/24/2024 10:15:21 10/23/20 24 10/24/2024 CBC, PLATE LET, NO DIFFE RENTI AL RDW 12.1 % 11.7-1 5.4 Not Available [address], [address], 10/24/2024 10:15:21 10/23/20 24 10/24/2024 CBC, PLATE LET, NO DIFFE RENTI AL platelets 330 x10e3 /uL 150-45 0 Not Available [address], [address], 10/24/2024 10:15:21 10/23/20 24 10/23/2024 HbA1c (hemo globi n A1c), blood HbA1c 5.6 Not Available In-Office Order Internal Use Only DO Not Attach Compendium DO Not Attach Compendium, Do Not Delete/merge, [id number] 10/23/2024 15:42:15 Result Notes None recorded. Problems No Known Problems Procedures Surgical History Date Name Laterality Status Provider Name and Address Organization Details Recorded Time Date of Last Mammogram completed Bridgette Rivas MA [place] - [facility] 03/05/2022 15:54:57 Imaging Results None recorded. Procedure Notes None recorded. Medical Equipment None Reported. Allergies Allergen ID Allergen Name Allergen Category Reaction Reaction Severity Criticality Documentation Date Start Date Code Code System Note Provider Name and Address Organization Details Recorded Time 191324 codeine medicatio n hallucina tions Not available Not available 03/05/2022 5880 RxNorm Not Available Not Available Not Available Medications Name Sig Start Date Stop Date Status Note LastModified by Organization Details LastModified Time levothyroxi ne 175 mcg tablet TAKE ONE TABLET BY MOUTH DAILY 01/21 completed Not Available Not Available Not Available gabapentin 600 mg tablet TAKE 1 TABLET 3 TIMES A DAY BY ORAL ROUTE FOR 30 DAYS. 11/07 completed Not Available Not Available Not Available azithromyci n 250 mg tablet 01/23 completed Not Available Not Available Not Available valacyclovi r 1 gram tablet TAKE ONE TABLET BY MOUTH EVERY TWELVE HOURS active Not Available Not Available No t Available Synthroid 150 mcg tablet Take 1 tablet every day by oral route for 90 days. 2024 active Not Available Not Available Not Avai lable lisinopril 20 mg tablet TAKE 1 TABLET DAILY. MAKE AN APPOINTME NT FOR FURTHER REFILLS. active Not Available Not Available No t Available gabapentin 400 mg capsule Take 1 capsule 4 times a day by oral route as needed for 30 days. 06/26 completed Not Available Not Available Not Available sertraline 100 mg tablet TAKE 1 TABLET DAILY active Not Available Not Available No t Available metronidazo le 500 mg tablet 01/20 completed Not Available Not Available Not Available sulfamethox azole 800 mg-trimetho prim 160 mg tablet Take 1 tablet every 12 hours by oral route for 10 days. 03/27 completed Not Available Not Available Not Available lovastatin 10 mg tablet TAKE 1 TABLET DAILY active Not Available Not Available No t Available tramadol 50 mg tablet TAKE 1 TABLET EVERY 6 HOURS BY ORAL ROUTE FOR 30 DAYS. 2024 active Not Available Not Available Not Avai lable acyclovir 800 mg tablet 10/23 completed Not Available Not Available Not Available Depo-Medrol 80 mg/mL suspension for injection Take 1 mL by injection route. 01/02 completed Not Available Not Available Not Available famotidine 20 mg tablet TAKE 1 TABLET TWICE A DAY active Not Available Not Available No t Available amitriptyli ne 25 mg tablet active Not Available Not Available Not Available prednisolon e acetate 1 % eye drops,suspe nsion active Not Available Not Available Not Available gabapentin 800 mg tablet Take 1 tablet 3 times a day by oral route for 5 days. 02/27 completed Not Available Not Available Not Available prednisone 50 mg tablet 01/23 completed Not Available Not Available Not Available lidocaine 5 % topical patch APPLY 1 PATCH BY TOPICAL ROUTE ONCE DAILY (MAY WEAR UP TO 12HOURS.) 01/02 completed Not Available Not Available Not Available gabapentin 300 mg capsule Take 1 capsule 3 times a day by oral route for 30 days. 07/20 completed Not Available Not Available Not Available gabapentin 100 mg capsule TAKE 1 CAPSULE 3 TIMES A DAY. 02/07 completed Not Available Not Available Not Available methylpredn isolone 4 mg tablets in a dose pack Take 1 dose pk by oral route as directed. 01/02 completed Not Available Not Available Not Available albuterol sulfate HFA 90 mcg/actuati on aerosol inhaler USE 2 INHALATIO NS ORALLY 4 TIMES DAILY active Not Available Not Available No t Available lisinopril 40 mg tablet Take 1 tablet every day by oral route for 90 days. 2024 active Not Available Not Available Not Avai lable neomycin 3.5 mg/g-polymy smita B 10,000 unit/g-dexa meth 0.1 % eye oint APPLY A SMALL AMOUNT INTO THE CONJUNCTI DIANNE SAC(S) IN AFFECTED EYE(S) BY OPHTHALMI C ROUTE 3 TIMES PER DAY 07/20 completed Not Available Not Available Not Available enoxaparin 300 mg/3 mL subcutaneou s solution 01/23 completed Not Available Not Available Not Available BD Integra Syringe 3 mL 25 gauge x 5/8 active Not Available Not Available Not Available Lyrica 150 mg capsule Take 1 capsule 3 times a day by oral route. active Not Available Not Available No t Available hydrochloro thiazide 12.5 mg tablet TAKE 1 TABLET DAILY active Not Available Not Available No t Available budesonide- formoterol HFA 80 mcg-4.5 mcg/actuati on aerosol inhaler 01/23 completed Not Available Not Available Not Available Zirgan 0.15 % eye gel 05/24 completed Not Available Not Available Not Available lurasidone 40 mg tablet TAKE 1 TABLET DAILY. 2024 active Not Available Not Available Not Avai lable albuterol sulf 90 mcg/actuati on breath activated powder inhaler,sen sor Inhale 2 puffs 4 times a day by inhalatio n route as needed 2022 active Not Available Not Available Not Avai lable Vitals Date Recorded Body height Body mass index (BMI) Body weight Oxygen saturation Oxygen saturation in Arterial blood by Pulse oximetry Heart rate Systolic blood pressure Diastolic blood pressure Provider Name and Address Organization Details Last Updated DateTime 163.83 cm 50.5 kg/m2 716165. 12 g 97 % 97 % 67 /min 148 mm[Hg] 66 mm[Hg] Anitha King MA [facility] 4 14:49:19 Date Recorded Body height Body mass index (BMI) Body weight Heart rate Oxygen saturation Oxygen saturation in Arterial blood by Pulse oximetry Systolic blood pressure Diastolic blood pressure Provider Name and Address Organization Details Last Updated DateTime 4 163.83 cm 50.9 kg/m2 072622. 3 g 78 /min 97 % 97 % 136 mm[Hg] 66 mm[Hg] Anitha King MA [facility] 4 15:55:08 Date Recorded Body height Body mass index (BMI) Body weight Oxygen saturation Oxygen saturation in Arterial blood by Pulse oximetry Heart rate Systolic blood pressure Diastolic blood pressure Provider Name and Address Organization Details Last Updated DateTime 4 163.83 cm 50.7 kg/m2 042194. 71 g 98 % 98 % 81 /min 121 mm[Hg] 84 mm[Hg] Bridgette Rivas MA [facility] 4 15:13:16 Date Recorded Body height Body mass index (BMI) Body weight Systolic blood pressure Diastolic blood pressure Provider Name and Address Organization Details Last Updated DateTime 10/23/2024 163.83 cm 49.2 kg/m2 595967.4 6 g 120 mm[Hg] 71 mm[Hg] Christie Rosa MA [facility] 4 15:17:40 Date Recorded Body height Body mass index (BMI) Body weight Oxygen saturation Oxygen saturation in Arterial blood by Pulse oximetry Heart rate Systolic blood pressure Diastolic blood pressure Provider Name and Address Organization Details Last Updated DateTime 5 163.83 cm 48.5 kg/m2 088409. 01 g 98 % 98 % 85 /min 120 mm[Hg] 86 mm[Hg] Bridgette Rivas MA [facility] 5 15:07:41 Social History Question Answer Notes LastModified by Organizat ion Details LastModified Time Tobacco Smoking Status Former Smoker Patti Martinez MA [facility], [facility] 01/20/2023 14:34:26 What Is Your Level Of Alcohol Consumption? None Information not available 03/05/2022 Are You Blind Or Do You Have Difficulty Seeing? No Information not available 07/12/2022 What Is Your Level Of Caffeine Consumption? Moderate 2 Cups Of Coffee Information not available 07/12/2022 In The 14 Days Before Symptom Onset, Have You Had Close Contact With A Laboratory-confi rmed COVID-19 While That Case Was Ill? No Information not available 03/05/2022 In The 14 Days Before Symptom Onset, Have You Had Close Contact With A Person Who Is Under Investigation For COVID-19 While That Person Was Ill? No Information not available 03/05/2022 Have You Been To An Area Known To Be High Risk For COVID-19? No Information not available 03/05/2022 Are You Currently Employed? No Disability Information not available 03/05/2022 Are You Deaf Or Do You Have Serious Difficulty Hearing? No Information not available 07/12/2022 What Type Of Diet Are You Following? REGULAR Golo Diet Information not available 03/05/2022 Do You Or Have You Ever Used E-cigarettes Or Vape? Current User Of Electronic Cigarettes Information not available 01/02/2025 What Was The Date Of Your Most Recent Tobacco Screening? 01/02/2025 Information not available 01/02/2025 What Is Your Relationship Status? Information not available 03/05/2022 Do You Use Your Seat Belt Or Car Seat Routinely? Yes Information not available 07/12/2022 Do You Have Smoke And Carbon Monoxide Detectors In Your Home? Yes Information not available 03/05/2022 Are You Passively Exposed To Smoke? Yes Information not available 03/05/2022 How Much Tobacco Do You Smoke? 1 PPD Information not available 03/05/2022 Do You Feel Stressed (tense, Restless, Nervous, Or Anxious, Or Unable To Sleep At Night)? FH9340-1 Information not available 03/05/2022 Do You Use Any Illicit Or Recreational Drugs? No CBD Information not available 03/05/2022 Do You Use Sunscreen Routinely? No Information not available 07/12/2022 Has Tobacco Cessation Counseling Been Provided? Yes Information not available 03/05/2022 On What Date Was Tobacco Cessation Counseling Provided? 01/02/2025 Information not available 01/02/2025 Do You Or Have You Ever Used Any Other Forms Of Tobacco Or Nicotine? Yes Information not available 01/02/2025 Sex: Unknown Functional Status Question Answer Note LastModified by Organizat ion Details LastModified Time Are you able to care for yourself? Yes Information not available 03/05/2022 What is your exercise level? Occasional Information not available 07/12/2022 Mental Status None recorded. Family History Nothing Reported. Medical History Condition Response Coronary Artery Disease N Other Y High Blood Pressure N Atrial Fibrillation N Thyroid Problems Y Kidney or Bladder Problems N GI Problems N Depression Y COPD N Blood Clots Y Skin Problems N Eating Disorder N Anemia N Heart Attack (RI) N Anxiety Disorder N Diabetes N Muscle, Joint, or Bone Problems N Seizures/Epilepsy N Acid Reflux (GERD) Y Cancer N Stroke N Asthma N Allergies N ADHD N Substance Abuse N High Cholesterol Y Hepatitis N Liver Disease N Schizophrenia N Headaches N Heart Failure N Osteoporosis N Gynecological History Statement/Question Response Date of Last Mammogram 11/28/2020 Obstetrics History GPAL:G 0 P 0 0 0 0 Immunizations Vaccine Type Date Status Note Provider Nam e and Address Organization Details Recorded Time Influenza, high-dose, trivalent, PF 10/23/2024 completed Anitha King MA [place], [place] - [facility] 10/23/2024 15:53:30 Past Encounters Encounter ID Performer Location Encounter Start Date Encounter Closed Date Diagnosis/Indication Diagnosis SNOMED-CT Code Diagnosis ICD10 Code Diagnosis Note [id number] ELIAS Anthony [address] [place] [address] 03/05/2022 15:46:14 03/08/2022 09:52:20 Severe obesity 1379991949 9104 E66.01 Tobacco de pendence syndrome 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 F17.210 Bipolar I disorder 23175 6008 F31.0 Adult [facility] examination 319513296 Z00.00 [id number] ELIAS [facility] [address] [place] [address] 07/12/2022 14:05:03 07/12/2022 15:30:13 Adult health examination 085751255 Z00.00 Body mass index 30+ - obesity 580333788 Z68.43 Morbid obesity 067036228 E66.01 Bipolar disorder 6348314 4 F31.0 Mild persi stent asthma 009670275 J45.30 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 353960645 E06.3 Essential hypertension 83543770 I10 Gastroesop hageal reflux disease 895642242 K21.9 [id number] Gordon Tim PA-C [facility] [address] [place] [address] 01/20/2023 14:19:56 01/20/2023 15:35:38 Essential hypertension 98060400 I10 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 998337226 E06.3 Overweight 740460721 E66 .3 Primary hypomagnesemia 84073994 E83.42 [id number] Anitha King MA [facility] [address] [place] [address] 07/28/2023 15:13:30 07/29/2023 11:39:07 Essential hypertension 18847372 I10 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 730006049 E06.3 [id number] Gordon Tim PA-C [facility] [address] [place] [address] 01/23/2024 14:24:33 01/24/2024 11:39:15 Left trigeminal neuralgia 8649690572 2124893 G50.0 Herpes zoster 5204569 B0 2.9 Essential hypertension 35256440 I10 Overweight 533957955 E66 .3 [id number] Gordon Tim PA-C [facility] [address] [place] [address] 03/08/2024 13:43:24 03/15/2024 15:48:07 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 Cellulitis of scalp 5219 0008 L03.811 Overweight 598029461 E66 .3 Essential hypertension 60326155 I10 [id number] SRIDHAR KHOURY [facility] [address] [place] [address] 03/27/2024 14:40:00 04/04/2024 15:06:40 Herpes zoster 0924099 B02.9 -Patient has been sick with herpes zoster for 76 days without relief.-Jaskaran villavicencio agreeable to ophthalmol ogist referral for further evaluation of eye.-Patie nt agreeable to ID referral for persistent herpes zoster.-SIX [employer]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 [id number] Gordon Tim PA-C [facility] [address] [place] [address] 05/24/2024 15:45:09 05/26/2024 07:35:13 Herpes zoster 0001341 B02.9 Trigeminal neuralgia 316 [address] G50.0 [id number] Gordon Tim PA-C [facility] [address] [place] [address] 07/20/2024 14:43:07 07/23/2024 14:17:52 Trigeminal neuralgia [id number] G50.0 [id number] Gordon Tim PA-C [facility] [address] [place] [address] 10/23/2024 15:07:12 10/30/2024 13:02:30 Administration of influenza vaccine [id number] Z23 Postherpet ic neuralgia 0405856 B02.29 Morbid obesity 320605002 E66.01 Essential hypertension [id number] I10 [id number] Gordon Tim PA-C [facility] [address] [place] [address] 01/02/2025 14:57:01 01/04/2025 12:09:45 Trigeminal neuralgia 47680265 G50.0 present for 1 year Hematochezia [id number] K 92.1 Bilious vomiting 4195690 2 R11.14 Overweight 253831543 E66 .3 Health Concerns Section Related Observation LastModified by Organization Detai ls LastModified Time None Recorded Concern Status LastModified by Organization Details LastModified Time None Recorded Advance Directives Directive None Recorded Payers Encounter Date Sequence Insurance Name Policy Number Policy Teixeira Covered Member ID Teixeira Member ID Guarantor Name 03/27/2024 1 [employer] - [place] (MEDICARE REPLACEMENT/AD VANTAGE - HMO) [id number] Jessica Gutiérrez [id number] Jessica Gutiérrez 03/27/2024 2 [place] MEDICARE REPLACEMENT PRIMARY) Jessica Gutiérrez [id number] Jessica Gutiérrez 05/24/2024 1 [employer] [place] (MEDICARE REPLACEMENT/AD VANTAGE - HMO) [id number] L Jessica Gutiérrez [id number] Jessica Gutiérrez 05/24/2024 2 [place]PLACEMENT PRIMARY) Jessica Gutiérrez [id number] Jessica Gutiérrez 07/20/2024 1 [employer] - [place] (MEDICARE REPLACEMENT/AD VANTAGE - HMO) [id number] Jessica Gutiérrez [id number] Jessica Gutiérrez 07/20/2024 2 [place]IC[place] REPLACEMENT PRIMARY) Jessica Gutiérrez [id number] Jessica Gutiérrez 10/23/2024 1 [employer] [place] (MEDICARE REPLACEMENT/AD VANTAGE - HMO) [id number] L Jessica Gutiérrez [id number] Jessica Gutiérrez 10/23/2024 2 [place] MEDICARE REPLACEMENT PRIMARY) Jessica Gutiérrez [id number] Jessica Gutiérrez 01/02/2025 1 [employer] - [place] (MEDICARE REPLACEMENT/AD VANTAGE - HMO) [id number] L Jessica Gutiérrez [id number] Jessica Gutiérrez 01/02/2025 2 [place] MEDICARE REPLACEMENT PRIMARY) Jessica Gutiérrez [id number] Jessica Gutiérrez Notes Date Note Type Note Provider Name and Address Organization Details Recorded Time 03/27/2024 text/html Patient presents to the clinic with acute complaint of Herpes Zoster. Patient is established with Gordon TURNER for primary care. Patient's past medical history includes hypertension, hypothyroidism, hyperlipidemia, and Herpes Zoster. Herpes Zoster-Patient was seen 01/23/24 in clinic and diagnosed with Herpes Zoster and treated with Valtrex, gabapentin, and tramadol. Patient has completed multiple cycles of valcyclovir and every time the medication is discontinued, her symptoms return.-She has not seen an opthalmologist for her symptoms in her eye.-Patient reports tender rash throughout her face and scalp. SRIDHAR KHOURY Attn: Accounting, [address] [facility], [place], [place], [address] [place] [address], [facility] 04/03/2024 12:12:40 05/24/2024 text/html still having shingles pain for 138 days...never went away from initial episode.. Gordon Tim PA-C Attn: Accounting, [address] [facility], [place], [place], [address] [place] [address], [facility] 05/24/2024 16:24:46 07/20/2024 text/html shingles persist in trigeminal distribution...left eye Gordon Tim PA-C Attn: Accounting, [address] [facility], [place], [place], [address] [place] [address], [facility] 07/20/2024 15:31:28 10/23/2024 text/html PHN persists..ra sh is not there ....pain is horrible and nothing we have given has provided relief....says that the valcyclovir does help a little but gabapentin not helping at all... Gordon Tim PA-C Attn: Accounting, [address] [facility], [place], [place], [address] [place] [address], [place] [facility] 10/23/2024 15:59:53 01/02/2025 text/html having diarrhea..also says she is having shingles still on left face..needs gastro..yellow diarrhea..EOD with vomiting..also hematochezia Gordon Tim PA-C Attn: Accounting, [address] [facility], [place], [place], [address] [place] [address], [place] - [facility] 01/02/2025 15:17:26 OBGyn Episode No OBEpisode recorded.
== END 2025-03-06 14:03 | disposition home or self-care (01) ==
LOC: CHSIMG 14:04
PROVIDERS: PCP Family Medicine; Visit Provider Family Medicine
DX: Z12.31 Encounter for screening mammogram for malignant neoplasm of breast (principal)
CPT/HCPCS: 77063; 77067